=== PATIENT | male | born 1975 | race Caucasian/White ===

== ENCOUNTER 2020-03-25 23:59 | Emergency (ER) | payer SELFPAY ==
[~2020-03-25] VITALS: Ht 175.3 cm; Wt 90.7 kg
[2020-03-26 00:01] VITALS: Ht 175.3 cm; Wt 90.7 kg
[2020-03-26 01:14] VITALS: BP 155/92
== END 2020-03-26 01:14 | disposition home or self-care (01) ==
LOC: ED 23:59
DX: M79.10 Myalgia, unspecified site (principal); R07.89 Other chest pain; R05 Cough; Z20.828 Contact with and (suspected) exposure to other viral communicable diseases
CPT/HCPCS: U0003